=== PATIENT | male | born 1985 | race Caucasian/White ===

== ENCOUNTER 2016-08-11 23:12 | Emergency (ER) | payer BC, OTHER ==
--- NOTE | 2016-08-11 23:24 | EDM.PDOC ---
ED HPI Trauma - General Chief Complaint: Upper Extremity Injury/Pain Stated Complaint: PAIN/SWOLLEN LT HAND Time Seen by Provider: 08/11/16 23:17 - History of Present Illness INITIAL COMMENTS - FREE TEXT/NARRATIVE: HISTORY AND PHYSICAL: History of present illness: The patient is a 30-year-old male with a stated medical problems who was in his usual state of good health when he was playing with a bat swinging it around and accidentally hit the dorsal aspect of his right hand on a chair. Patient complains of swelling to the dorsal aspect of the hand near MCP 3 through 5 there is no neurosensory changes. He Has put ice on it do to the swelling. He is able to move his fingers and has no distal pain nor any proximal wrist forearm elbow or shoulder pain. The patient is right-hand dominant. Patient was concerned about the pain and swelling and thought he should have it x-rayed. Patient denies any other injuries Review of systems: As per history of present illness and below otherwise all systems reviewed and negative. Past medical history: As per history of present illness and as reviewed below otherwise noncontributory. Surgical history: As per history of present illness and as reviewed below otherwise noncontributory. Social history: No reported history of drug or alcohol abuse. Family history: As per history of present illness and as reviewed below otherwise noncontributory. Physical exam: General: Well-developed overweight male who is nontoxic and speaking clearly and easily. No sense of the reviewed by me HEENT: Atraumatic, normocephalic, negative for conjunctival pallor or scleral icterus, mucous membranes moist, throat clear, neck supple, nontender, trachea midline. Lungs: Clear to auscultation, breath sounds equal bilaterally, chest nontender. Heart: S1S2, regular rate and rhythm no overt murmurs Abdomen: Soft, nondistended, nontender. NABS. Genitourinary: Deferred. Rectal: Deferred. Extremities: Atraumatic except for the dorsal aspect of the left hand where there is soft tissue swelling and a very superficial abrasion seen along the MCP area of digits 3 through 5. There are no palpable bony deformities appreciated There is no palmar surface tenderness or swelling and there is no distal finger tenderness or swelling nor any proximal hand wrist forearm elbow or shoulder discomfort/tenderness/swelling or palpable bony defects. Neurovascular is intact in all the digits and the hand. Patient is able to flex and extend all the digits. All other extremities have full range of motion without defects or deficits, Neurovascular unremarkable. Neuro: Awake, alert, oriented. Cranial nerves II through XII unremarkable. Cerebellum unremarkable. Motor and sensory unremarkable throughout. Exam nonfocal. Diagnostics: X-ray left hand Therapeutics: Ice pack Patient was offered a sling and declines any was also offered Motrin and he declines. He is aware of negative x-rays Impression: Contusion left hand Definitive disposition and diagnosis as appropriate pending reevaluation and review of above. Allergies/ADRs: Allergies Sulfa (Sulfonamide Antibiotics) Allergy (Verified 08/11/16 23:16) Airway Tightness Home Medications: Ambulatory Orders . [No Known Home Meds] 08/11/16 [Confirmed 08/11/16] Past Medical History Cardiovascular History: Reports: None Respiratory History: Reports: Asthma Gastrointestinal History: Reports: None Genitourinary History: Reports: None Musculoskeletal History: Reports: Gout Neurological History: Reports: None Psychiatric History: Reports: Anxiety, Depression Endocrine/Metabolic History: Reports: None Hematologic History: Reports: None Immunologic History: Reports: None Dermatologic History: Reports: None Social & Family History - Tobacco Use Smoking Status *Q: Current Every Day Smoker Years of Tobacco use: 9 Packs/Tins Daily: 0.5 Used Tobacco, but Quit: No Second Hand Smoke Exposure: Yes - Alcohol Use Days Per Week of Alcohol Use: 1 Number of Drinks Per Day: 2 Total Drinks Per Week: 2 - Recreational Drug Use Recreational Drug Use: Yes Drug Use in Last 12 Months: Yes Recreational Drug Type: Reports: Marijuana/Hashish Recreational Drug Use Frequency: Monthly Review of Systems - Review of Systems Review Of Systems: ROS reveals no pertinent complaints other than HPI. Trauma Exam - Physical Exam Exam: See Below (See dictation) Course - Vital Signs Last Recorded V/S: Last Vital Signs Temp 36 C 08/11/16 23:17 Pulse 77 08/11/16 23:17 Resp 16 08/11/16 23:17 BP 166/86 H 08/11/16 23:17 Pulse Ox 98 08/11/16 23:17 - Orders/Labs/Meds Orders: Active Orders 24 hr Category Date Time Status Hand Comp Min 3V Lt [CR] Stat Exams 08/11/16 23:20 Taken Departure - Departure Time of Disposition: 23:55 Disposition: Home, Self-Care 01 Condition: good Clinical Impression: Contusion of left hand Qualifiers: Encounter type: initial encounter Qualified Code(s): S60.222A - Contusion of left hand, initial encounter Forms: ED Department Discharge Additional Instructions: The following information is given to patients seen in the emergency department who are being discharged to home. This information is to outline your options for follow-up care. We provide all patients seen in our emergency department with a follow-up referral. The need for follow-up, as well as the timing and circumstances, are variable depending upon the specifics of your emergency department visit. If you don't have a primary care physician on staff, we will provide you with a referral. We always advise you to contact your personal physician following an emergency department visit to inform them of the circumstance of the visit and for follow-up with them and/or the need for any referrals to a consulting specialist. The emergency department will also refer you to a specialist when appropriate. This referral assures that you have the opportunity for followup care with a specialist. All of these measure are taken in an effort to provide you with optimal care, which includes your followup. Under all circumstances we always encourage you to contact your private physician who remains a resource for coordinating your care. When calling for followup care, please make the office aware that this follow-up is from your recent emergency room visit. If for any reason you are refused follow-up, please contact the [facility] emergency department at and ask to speak to the emergency department charge nurse. Primary care- [place] [address] Ice and elevate and use [id number] ibuprofen/Motrin for pain. Please followup with family DrCj for further care and evaluation and return to the ER as needed and as discussed - My Orders Last 24 Hours: My Active Orders 08/11/16 23:20 Hand Comp Min 3V Lt [CR] Stat - Assessment/Plan Last 24 Hours: My Active Orders 08/11/16 23:20 Hand Comp Min 3V Lt [CR] Stat
[2016-08-12 00:09] VITALS: BP 130/73
--- NOTE | 2016-08-13 18:09 | CR ---
EXAM DATE: 08/11/16 PATIENT'S AGE: 30 Patient: EM TUAN Facility: [place], [place] Site . Site : 1985 Study: XRay Extremity hand [id number]/14/2017 11:32:24 PM Ordering Physician: Porfirio Zavala Final Report: Indication: Injury Technique: Three views of the left hand Comparison: None available Findings: Bones: Alignment is normal. No fractures or bone lesions. Joint spaces: Unremarkable. Soft tissues: Dorsal and ulnar soft tissue swelling. Impression: No acute fracture. Dictated by Mina Pedroza MD @ 08/11/2016 11:43:46 PM Dictated by: Mina Pedroza MD @ 08/11/2016 23:43:51 (Electronic Signature) Report Signed by Proxy and Original Signed Document filed in the Medical Record. [email or web address]
== END 2016-08-12 00:07 | disposition home or self-care (01) ==
LOC: MW.ED 23:12
DX: S60.222A Contusion of left hand, initial encounter (principal); Z88.2 Allergy status to sulfonamides; F17.210 Nicotine dependence, cigarettes, uncomplicated; W22.8XXA Striking against or struck by other objects, initial encounter
CPT/HCPCS: 73130-26-LT; 73130-LT; 99282; 99283

== ENCOUNTER 2017-05-12 12:59 | Emergency (ER) | payer SELFPAY ==
[2017-05-12] MEDS ORDERED: Ketorolac 60 MG/2 ML SDV IM ONE (13:45)
--- NOTE | 2017-05-12 13:45 | EDM.PDOC ---
ED HPI GENERAL MEDICAL PROBLEM - General Stated Complaint: PAIN IN BOTH ANKLES Time Seen by Provider: 05/12/17 13:00 Source of Information: Reports: Patient History Limitations: Reports: No Limitations - History of Present Illness INITIAL COMMENTS - FREE TEXT/NARRATIVE: HISTORY AND PHYSICAL: Unilateral left ankle swelling History of present illness: Patient is a 31-year-old male who presents to the emergency room with complaints of left ankle swelling which she noticed this morning. He states that he does have a history of gout, which she had in his left great toe and was treated with medications. She states this pain does feel similar to that, as it is tender to touch, weightbearing and pressure from shoes. 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 He denies any recent injury or trauma to the affected extremity. No previous surgery or injury to the affected extremity. Review of systems: As per history of present illness and below otherwise all systems reviewed and negative. Past medical history: As per history of present illness and as reviewed below otherwise noncontributory. Surgical history: As per history of present illness and as reviewed below otherwise noncontributory. Social history: No reported history of drug or alcohol abuse. Family history: As per history of present illness and as reviewed below otherwise noncontributory. Physical exam: Gen.: Well-developed and well-nourished 31-year-old male. Alert and oriented. Appears in no acute distress. HEENT: Atraumatic, normocephalic, pupils reactive, negative for conjunctival pallor or scleral icterus, mucous membranes moist, throat clear, neck supple, nontender, trachea midline. Lungs: Clear to auscultation, breath sounds equal bilaterally, chest nontender. Heart: S1S2, regular, negative for clicks, rubs, or JVD. Abdomen: Soft, nondistended, nontender. Negative for masses or hepatosplenomegaly. Negative for costovertebral tenderness. Pelvis: Stable nontender. Genitourinary: Deferred. Rectal: Deferred. Extremities: Atraumatic, lives all extremities per self. Patient is ambulatory and able to bear weight on the affected extremity. Good flexion and dorsiflexion of the affected extremity. Strong pedal pulses bilaterally. Mild swelling noted to the lateral medial foot into the ankle, tenderness with palpation. He is negative for cords or calf pain. Neurovascular unremarkable. Denies any numbness or tingling. Skin: Mild erythema noted over the left lateral malleolus. Neuro: Awake, alert, oriented. Cranial nerves II through XII unremarkable. Cerebellum unremarkable. Motor and sensory unremarkable throughout. Exam nonfocal. Uric Acid was elevated. Labs were reviewed with the patient. Prescription for indomethacin, colchicine, medrol dose jing was given. Informed patient to avoid high purine foods. Please follow-up with your primary caregiver in the next couple days. Patient voices understanding and is agreeable to plan of care. Denies any further questions at this time. Diagnostics: Uric acid, CBC, left ankle x-ray Therapeutics: Toradol Impression: Gout Plan: 1. Please take your medications as prescribed. May want to take these with food. 2. Follow-up with your primary care provider in the next 1-2 days. Return to the ED as needed and as discussed. Definitive disposition and diagnosis as appropriate pending reevaluation and review of above. Onset: Today Duration: Hour(s): Location: Reports: Lower Extremity, Left Improves with: Reports: None Worsens with: Reports: Other (Weight bearing, pressure) Associated Symptoms: Reports: No Other Symptoms Left Ankle Pain Score (Numeric/FACES): 4 - Related Data Allergies Allergy/AdvReac Type Severity Reaction Status Date / Time Sulfa (Sulfonamide Allergy Airway Verified 05/12/17 13:18 Antibiotics) Tightness Home Meds: Home Meds Acetaminophen [Tylenol Extra Strength] 1 tab PO DAILY 05/12/17 [History] Past Medical History HEENT History: Reports: None Cardiovascular History: Reports: None Respiratory History: Reports: Asthma Gastrointestinal History: Reports: None Genitourinary History: Reports: None Musculoskeletal History: Reports: Gout Neurological History: Reports: None Psychiatric History: Reports: Anxiety, Depression Endocrine/Metabolic History: Reports: None Hematologic History: Reports: None Immunologic History: Reports: None Dermatologic History: Reports: None - Infectious Disease History Infectious Disease History: Reports: Chicken Pox Social & Family History - Family History Family Medical History: Noncontributory - Tobacco Use Smoking Status *Q: Light Tobacco Smoker Years of Tobacco use: 15 Packs/Tins Daily: 0 Used Tobacco, but Quit: No Second Hand Smoke Exposure: Yes - Caffeine Use Caffeine Use: Reports: Soda - Alcohol Use Days Per Week of Alcohol Use: 1 Number of Drinks Per Day: 2 Total Drinks Per Week: 2 - Recreational Drug Use Recreational Drug Use: Yes Drug Use in Last 12 Months: Yes Recreational Drug Type: Reports: Marijuana/Hashish Recreational Drug Use Frequency: Monthly ED ROS GENERAL - Review of Systems Review Of Systems: ROS reveals no pertinent complaints other than HPI. ED EXAM, GENERAL - Physical Exam Exam: See Below (See dictation) Course - Vital Signs Last Recorded V/S: Last Vital Signs Temp 97.6 F 05/12/17 13:19 Pulse 77 05/12/17 13:19 Resp 18 05/12/17 13:19 BP 132/89 05/12/17 13:19 Pulse Ox 98 05/12/17 13:19 - Orders/Labs/Meds Labs: Laboratory Tests 05/12/17 05/12/17 Range/Units 14:00 14:00 WBC 11.31 H (4.0-11.0) K/uL RBC 5.79 (4.50-5.90) M/uL Hgb 17.2 H (13.0-17.0) g/dL Hct 49.0 (38.0-50.0) % MCV 84.6 (80.0-98.0) fL MCH 29.7 (27.0-32.0) pg MCHC 35.1 (31.0-37.0) g/dL RDW Std Deviation 40.0 (28.0-62.0) fl RDW Coeff of José Manuel 13 (11.0-15.0) % Plt Count 299 (150-400) K/uL MPV 10.30 (7.40-12.00) fL Neut % (Auto) 60.4 (48.0-80.0) % Lymph % (Auto) 29.8 (16.0-40.0) % [place] % (Auto) 7.4 (0.0-15.0) % Eos % (Auto) 1.8 (0.0-7.0) % Baso % (Auto) 0.6 (0.0-1.5) % Neut # (Auto) 6.8 H (1.4-5.7) K/uL Lymph # (Auto) 3.4 H (0.6-2.4) K/uL [place] # (Auto) 0.8 (0.0-0.8) K/uL Eos # (Auto) 0.2 (0.0-0.7) K/uL Baso # (Auto) 0.1 (0.0-0.1) K/uL Nucleated RBC % 0.0 /100WBC Nucleated RBCs # 0 K/uL Uric Acid 9.5 H (2.1-7.4) mg/dL Meds: Medications Discontinued Medications Generic Name Dose Route Start Last Admin Trade Name Carlos PRN Reason Stop Dose Admin Ketorolac Tromethamine 60 mg 05/12/17 13:45 05/12/17 13:53 Toradol IM 05/12/17 13:46 60 mg ONETIME ONE Administration Departure - Departure Time of Disposition: 14:38 Disposition: Home, Self-Care 01 Clinical Impression: Gout Qualifiers: Gout site: ankle Gout etiology: unspecified cause Chronicity: acute Laterality : left Qualified Code(s): M10.9 - Gout, unspecified - Discharge Information Instructions: Gout, [id number] Referrals: PCP,None [Primary Care Provider] - Forms: ED Department Discharge Additional Instructions: My general discharge The following information is given to patients seen in the emergency department who are being discharged to home. This information is to outline your options for follow-up care. We provide all patients seen in our emergency department with a follow-up referral. The need for follow-up, as well as the timing and circumstances, are variable depending upon the specifics of your emergency department visit. If you don't have a primary care physician on staff, we will provide you with a referral. We always advise you to contact your personal physician following an emergency department visit to inform them of the circumstance of the visit and for follow-up with them and/or the need for any referrals to a consulting specialist. The emergency department will also refer you to a specialist when appropriate. This referral assures that you have the opportunity for follow-up care with a specialist. All of these measure are taken in an effort to provide you with optimal care, which includes your follow-up. Under all circumstances we always encourage you to contact your private physician who remains a resource for coordinating your care. When calling for follow-up care, please make the office aware that this follow-up is from your recent emergency room visit. If for any reason you are refused follow-up, please contact the [facility] Emergency Department at and asked to speak to the emergency department charge nurse. FOUZIA [facility] [address] [place] [id number] 1. Please take your medications as prescribed. May want to take these with food. 2. Follow-up with your primary care provider in the next 1-2 days. Return to the ED as needed and as discussed.
--- NOTE | 2017-05-12 14:29 | CR ---
EXAMINATION: Left ankle HISTORY: Pain COMPARISON: None TECHNIQUE: 3 views FINDINGS/IMPRESSION: There is no acute osseous abnormality, dislocation, or fracture. Bone mineraliza tion and joint spaces appear normal. Mild soft tissue swelling noted overlying the lateral malleolus.
[2017-05-12 15:11] VITALS: BP 119/82
== END 2017-05-12 14:44 | disposition home or self-care (01) ==
LOC: MW.ED 12:59
DX: M10.9 Gout, unspecified (principal); F17.210 Nicotine dependence, cigarettes, uncomplicated; Z88.2 Allergy status to sulfonamides; Z79.899 Other long term (current) drug therapy
CPT/HCPCS: 36415; 73610; 84550; 85025; 96372; 99283; J1885; 99284

== ENCOUNTER 2021-02-20 08:51 | Emergency (ER) | payer SELFPAY ==
--- NOTE | 2021-02-20 09:14 | EDM.PDOC ---
ED HPI GENERAL MEDICAL PROBLEM - General Chief Complaint: Lower Extremity Injury/Pain Stated Complaint: RT KNEE CANT MOVE IT Time Seen by Provider: 02/20/21 09:20 - History of Present Illness INITIAL COMMENTS - FREE TEXT/NARRATIVE: History of present illness: [] Patient was getting into the shower this morning. When he stepped up he had a pop in the anterior knee and this caused excruciating pain and he fell. He denies any other injury. The pain is severe at rest and worse when he tries to bear weight or move his knee. The patient had one of his knees injured when he was a child had at that time he had ligament damage but it healed without any surgery. He has no other problem with his knees in the past. Patient has no fever and chills there is no red this or warmth in the knees. Review of systems: As per history of present illness and below otherwise all systems reviewed and negative. Past medical history: As per history of present illness and as reviewed below otherwise noncontributory. Surgical history: As per history of present illness and as reviewed below otherwise noncontributory. Social history: No reported history of drug or alcohol abuse. Family history: As per history of present illness and as reviewed below otherwise noncontributory. Physical exam: Constitutional - well developed, well-nourished and in no acute distress HEENT - normocephalic, no evidence of trauma - external nose and mouth normal - no mass in neck and no JVD - mucosae moist EYES - full EOM, PERRL, no icterus - no evidence of inflammation, injection, or drainage Respiratory - no respiratory distress, equal bilateral expansion, lungs clear to auscultation and no abnormal lung sounds Cardiovascular - Regular Rhythm with S1 and S2 appreciated and no murmur, gallop or rub. Distal pulses and capillary refill intact in the distal right lower extremity GI - abdomen soft without distension or organomegaly - normal bowel sounds - no guard or rebound Musculoskeletal the patient has slight swelling at the insertion of the vastus medialis of the quadriceps in the right patella. There is exquisite tenderness there and mild tenderness on the lateral and medial knee joint. The right hip and right ankle are not tender. Otherwise no gross deformity of long bones or joints - no tenderness, swelling or edema Neurologic - Alert and oriented times four - CN II-XII grossly intact - motor sensory and coordination symmetrically normal. Neurovascular structures intact and in no abnormality in the right lower extremity. Psychiatric - appropriate mood and affect with normal thought content Hematologic - No petechiae or purpura - mucosa appropriate color and sclera not pale - normal nail bed color and refill Integument - no rash or evidence of trauma - normal turgor Diagnostics: [] Therapeutics: [] Impression: [] Plan: [] Definitive disposition and diagnosis as appropriate pending reevaluation and review of above. R knee Pain Score (Numeric/FACES): 7 - Related Data Allergies Allergy/AdvReac Type Severity Reaction Status Date / Time Sulfa (Sulfonamide Allergy Airway Verified 02/20/21 09:12 Antibiotics) Tightness Home Meds: Home Meds Acetaminophen/oxyCODONE [Percocet 325-10 MG] 1 tab PO Q4H PRN #20 tab 02/20/21 [Rx] Albuterol Sulfate [Albuterol Sulfate HFA] 2 puff INH Q4H PRN 02/20/21 [History] Budesonide/Formoterol Fumarate [Symbicort 160-4.5 Mcg Inhaler] 1 puff INH DAILY 02/20/21 [History] Past Medical History HEENT History: Reports: None Cardiovascular History: Reports: None Respiratory History: Reports: Asthma Gastrointestinal History: Reports: None Genitourinary History: Reports: None Musculoskeletal History: Reports: Gout Neurological History: Reports: None Psychiatric History: Reports: Anxiety, Depression Endocrine/Metabolic History: Reports: None Hematologic History: Reports: None Immunologic History: Reports: None Dermatologic History: Reports: None - Infectious Disease History Infectious Disease History: Reports: Chicken Pox Social & Family History - Family History Family Medical History: No Pertinent Family History - Caffeine Use Caffeine Use: Reports: Soda Review of Systems - Review of Systems Review Of Systems: Comprehensive ROS is negative, except as noted in HPI. ED EXAM, GENERAL - Physical Exam Exam: See Below Free Text/Narrative:: My physical exam is in the HPI Course - Vital Signs Text/Narrative:: 9:44 AM x-ray reveals no fracture but there may be an effusion. The quadriceps this tear suspected is verified by the fact that the patella rides laterally. Plan immobilization. DME will be written for an immobilizer that will be needed for 2 weeks. This is to prevent further injury and preserve the integrity of the remaining parts of the quadriceps until he can see orthopedics. Last Recorded V/S: Last Vital Signs Temp 36.4 C 02/20/21 09:09 Pulse 76 02/20/21 09:09 Resp 20 02/20/21 09:09 BP 174/83 H 02/20/21 09:09 Pulse Ox 95 02/20/21 09:09 - Orders/Labs/Meds Orders: Active Orders 24 hr Category Date Time Status Knee 3V Rt [CR] Stat Exams 02/20/21 09:25 Taken DME for Discharge [COMM] Stat Oth 02/20/21 09:43 Ordered Departure - Departure Time of Disposition: 09:55 Disposition: Home, Self-Care 01 Condition: Good Clinical Impression: Unspecified injury of right quadriceps muscle, fascia and tendon, initial encounter - Discharge Information Instructions: Knee Sprain, Adult, [id number] Referrals: Abdoulaye Clement MD [Primary Care Provider] - Forms: ED Department Discharge Additional Instructions: The emergency physician has decided you have torn the vastus medialis of your quadriceps at the insertion in the patella. It is imperative that you wear the immobilizer so that you do not do any further damage until you see orthopedics. [facility] [address], [address] [place] [address] The following information is given to patients seen in the emergency department who are being discharged to home. This information is to outline your options for follow-up care. We provide all patients seen in our emergency department with a follow-up referral. The need for follow-up, as well as the timing and circumstances, are variable depending upon the specifics of your emergency department visit. If you don't have a primary care physician on staff, we will provide you with a referral. We always advise you to contact your personal physician following an emergency department visit to inform them of the circumstance of the visit and for follow-up with them and/or the need for any referrals to a consulting specialist. The emergency department will also refer you to a specialist when appropriate. This referral assures that you have the opportunity for follow-up care with a specialist. All of these measure are taken in an effort to provide you with optimal care, which includes your follow-up. Under all circumstances we always encourage you to contact your private physician who remains a resource for coordinating your care. When calling for follow-up care, please make the office aware that this follow-up is from your recent emergency room visit. If for any reason you are refused follow-up, please contact the [facility] Emergency Department at and asked to speak to the emergency department charge nurse. Sepsis Event Note (ED) - Evaluation Sepsis Screening Result: No Definite Risk - Focused Exam Vital Signs: Vital Signs Temp Pulse Resp BP Pulse Ox 02/20/21 09:09 36.4 C 76 20 174/83 H 95 - My Orders Last 24 Hours: My Active Orders 02/20/21 09:25 Knee 3V Rt [CR] Stat 02/20/21 09:43 DME for Discharge [COMM] Stat - Assessment/Plan Last 24 Hours: My Active Orders 02/20/21 09:25 Knee 3V Rt [CR] Stat 02/20/21 09:43 DME for Discharge [COMM] Stat
[2021-02-20] MEDS ORDERED: Ketorolac 30 MG/ML SDV IM ONE (09:48)
[2021-02-20 10:00] VITALS: BP 172/104; PULSE 69
--- NOTE | 2021-02-20 10:16 | CR ---
Indication: Knee pain. Technique: Right knee 3 views. Comparison: None. Findings: Bones: Alignment is normal. No fractures or bone lesions. Joint spaces: Joint spaces are well maintained. No degenerative changes. No sign of joint effusion. Soft tissues: Unremarkable. Impression: No findings to explain pain. Dictated by Carlton Crystal MD @ 02/20/2021 10:14:52 AM (Electronically Signed)
== END 2021-02-20 10:13 | disposition home or self-care (01) ==
LOC: MW.ED 08:51
DX: S76.101A Unspecified injury of right quadriceps muscle, fascia and tendon, initial encounter (principal); Z88.2 Allergy status to sulfonamides; W18.39XA Other fall on same level, initial encounter
CPT/HCPCS: 73562; 96372; 99283; J1885

== ENCOUNTER 2024-01-17 21:12 | Emergency (ER) | payer BC ==
[2024-01-17 21:31] LABS: BASOPHILS ABSOLUTE AUTO 0.08 K/uL (0.00-0.20); BASOPHILS PERCENT AUTO 0.6 % (0.0-1.0); EOSINOPHILS ABSOLUTE AUTO 0.17 K/uL (0.00-0.45); EOSINOPHILS PERCENT AUTO 1.3 % (0.0-6.0); HEMATOCRIT 43.4 % (42.0-52.0); HEMOGLOBIN 15.1 g/dL (14.0-18.0); IMMATURE GRAN ABSOLUTE AUTO 0.02 K/uL (0.00-0.05); IMMATURE GRAN PERCENT AUTO 0.1 % (0.0-0.4); LYMPHOCYTES ABSOLUTE AUTO 3.21 K/uL (1.00-4.80); LYMPHOCYTES PERCENT AUTO 23.8 % (24.0-44.0); MEAN CORPUSCULAR HGB CONC 34.8 g/dL (32.0-36.0); MEAN CORPUSCULAR VOLUME 83.5 fL (83.0-99.0); MEAN PLATELET VOLUME 9.3 fL (9.4-12.4); MONOCYTES ABSOLUTE AUTO 0.75 K/uL (0.00-0.80); MONOCYTES PERCENT AUTO 5.6 % (0.0-8.0); NEUTROPHILS ABSOLUTE AUTO 9.27 K/uL (1.80-7.70); NEUTROPHILS PERCENT AUTO 68.6 % (41.0-71.0); PLATELET COUNT,PLT 377 K/uL (150-400)
[2024-01-17 21:44] LABS: INR 1.09 (0.86-1.11)
[2024-01-17 21:53] LABS: A/G RATIO 0.9 (0.9-1.6); ALANINE AMINOTRANSFERASE,ALT 74 IU/L (14-63); ALBUMIN 3.9 g/dL (3.4-5.0); ALKALINE PHOSPHATASE 105 U/L (46-116); ASPARTATE AMNIOTRANSFERASE,AST 34 IU/L (15-37); BILIRUBIN TOTAL 0.8 mg/dL (0.2-1.0); BLOOD UREA NITROGEN,BUN 10 mg/dL (7.0-18.0); CALCIUM 9.8 mg/dL (8.5-10.1); CARBON DIOXIDE,CO2 25.9 mmol/L (21.0-32.0); CHLORIDE,CL 102 mmol/L (98-107); CREATININE 1.1 mg/dL (0.8-1.3); ESTIMATED GFR 89 mL/min (>60); GLUCOSE RANDOM 107 mg/dL (74-106); POTASSIUM,K 3.8 mmol/L (3.5-5.1); PROTEIN TOTAL,TP 8.3 g/dL (6.4-8.2); SODIUM,NA 141 mmol/L (136-148)
[2024-01-17 22:08] VITALS: BP 140/103; PULSE 102
== END 2024-01-17 22:50 | disposition home or self-care (01) ==
LOC: MW.ED 21:12
DX: M71.22 Synovial cyst of popliteal space [Baker], left knee (principal); Z88.2 Allergy status to sulfonamides; Z79.51 Long term (current) use of inhaled steroids; Z75.8 Other problems related to medical facilities and other health care
CPT/HCPCS: 36415; 80053; 82550; 85025; 85610; 93970; 93970-26; 99284

== ENCOUNTER 2024-06-07 08:38 | Emergency (ER) | payer BC ==
[2024-06-07] MEDS ORDERED: Naloxone 0.4 MG/ML SDV IVPUSH PRN (09:51)
[2024-06-07] MEDS: HYDROmorphone 1 MG/ML Syringe IM ONE (10:02)
[2024-06-07 11:34] VITALS: BP 144/82; PULSE 85
== END 2024-06-07 11:34 | disposition home or self-care (01) ==
LOC: MW.ED 08:38
DX: S89.91XA Unspecified injury of right lower leg, initial encounter (principal); I10 Essential (primary) hypertension; J45.909 Unspecified asthma, uncomplicated; Z88.2 Allergy status to sulfonamides; Z79.51 Long term (current) use of inhaled steroids; Z79.899 Other long term (current) drug therapy; X58.XXXA Exposure to other specified factors, initial encounter
CPT/HCPCS: 73562; 96372; 99283; J1171

== ENCOUNTER 2024-12-25 08:34 | Emergency (ER) | payer BC ==
[2024-12-25] MEDS ORDERED: Sodium Chloride 0.9% 10 ML Syringe FLUSH PRN (09:38)
[2024-12-25] MEDS ORDERED: Sodium Chloride 0.9% 2.5 ML Syringe FLUSH PRN (09:38)
[2024-12-25 09:49] LABS: BASOPHILS ABSOLUTE AUTO 0.07 K/uL (0.00-0.20); BASOPHILS PERCENT AUTO 0.8 % (0.0-1.0); EOSINOPHILS ABSOLUTE AUTO 0.24 K/uL (0.00-0.45); EOSINOPHILS PERCENT AUTO 2.9 % (0.0-6.0); IMMATURE GRAN ABSOLUTE AUTO 0.03 K/uL (0.00-0.05); IMMATURE GRAN PERCENT AUTO 0.4 % (0.0-0.4); LYMPHOCYTES ABSOLUTE AUTO 2.20 K/uL (1.00-4.80); LYMPHOCYTES PERCENT AUTO 26.7 % (24.0-44.0); MEAN PLATELET VOLUME 10.3 fL (9.4-12.4); MONOCYTES ABSOLUTE AUTO 0.46 K/uL (0.00-0.80); MONOCYTES PERCENT AUTO 5.6 % (0.0-8.0); NEUTROPHILS ABSOLUTE AUTO 5.25 K/uL (1.80-7.70); NEUTROPHILS PERCENT AUTO 63.6 % (41.0-71.0); NRBC ABSOLUTE 0.00 K/uL (0.00-0.02); NRBC PERCENT 0.0 /100WBC (0.0-0.2); PLATELET COUNT,PLT 277 K/uL (150-400); RED BLOOD CELL COUNT 5.59 M/uL (4.52-5.90); WHITE BLOOD CELL COUNT,WBC 8.25 K/uL (3.9-11.3)
[2024-12-25 09:56] LABS: A/G RATIO 1.0 (0.9-1.6); ALANINE AMINOTRANSFERASE,ALT 84.0 IU/L (14-63); ASPARTATE AMNIOTRANSFERASE,AST 27.0 IU/L (15-37); BILIRUBIN TOTAL 0.3 mg/dL (0.2-1.0); BLOOD UREA NITROGEN,BUN 15.0 mg/dL (7.0-18.0); CARBON DIOXIDE,CO2 26.7 mmol/L (21.0-32.0); CHLORIDE,CL 104.0 mmol/L (98-107); CREATININE 1.1 mg/dL (0.8-1.3); EST CRCL DRUG DOSING (CG) 106.9 mL/min; GLUCOSE RANDOM 111.0 mg/dL (74-106); POTASSIUM,K 4.5 mmol/L (3.5-5.1); PROTEIN TOTAL,TP 8.2 g/dL (6.4-8.2); SODIUM,NA 140.0 mmol/L (136-148)
[2024-12-25 10:04] LABS: ESTIMATED GFR 89.0 mL/min (>60)
[2024-12-25 11:10] VITALS: BP 182/114; PULSE 64
== END 2024-12-25 11:05 | disposition home or self-care (01) ==
LOC: MW.ED 08:34
DX: I10 Essential (primary) hypertension (principal); J45.909 Unspecified asthma, uncomplicated; Z79.51 Long term (current) use of inhaled steroids; Z88.2 Allergy status to sulfonamides
CPT/HCPCS: 36415; 71046; 71046-26; 80053; 83735; 84484; 85025; 85379; 93005; 93010; 99283; 99284

== ENCOUNTER 2025-01-05 10:11 | Emergency (ER) | payer BC ==
[2025-01-05 10:24] VITALS: BP 136/80; PULSE 72
== END 2025-01-05 10:28 | disposition home or self-care (01) ==
LOC: MW.ED 10:11
DX: S61.217D Laceration without foreign body of left little finger without damage to nail, subsequent encounter (principal); X58.XXXD Exposure to other specified factors, subsequent encounter
CPT/HCPCS: 99281